=== PATIENT | female | born 1945 | race Caucasian/White ===

== ENCOUNTER 2016-02-19 05:22 | Inpatient (IN) | payer OTHER ==
[2016-02-19] MEDS ORDERED: LIDOCAINE 1% 5 ML SDV ONE ×2 (05:32→05:45)
[2016-02-19] MEDS ORDERED: CEFAZOLIN 2 GM/DEXTROSE/100 ML BAG IV ONE (05:43)
[2016-02-19] MEDS ORDERED: BUPIVACAINE/EPI 0.25% 30 ML SDV ONE (06:15)
[2016-02-19] MEDS ORDERED: BACITRACIN 50,000 UNITS/10 ML SYR IRR ONE ×2 (06:15→11:54)
[2016-02-19] MEDS ORDERED: THROMBIN (RECOMBINANT) 20,000 UNIT VIAL TP ONE (06:15)
[2016-02-19] MEDS ORDERED: ceFAZolin 2 GM/DEXTROSE 100 ML IV ONE (07:00)
[2016-02-19] MEDS ORDERED: CHLORHEXIDINE GLUC HIBICLENS 118 ML BTL TP ONE (07:00)
[2016-02-19] MEDS ORDERED: morphINE SR 15 MG TAB PO ONE (07:00)
[2016-02-19] MEDS ORDERED: MIDAZOLAM 2 MG/2 ML VIAL ONE (07:08)
[2016-02-19] MEDS ORDERED: REMIFENTANIL HCL 1 MG VIAL ONE ×2 (07:20→10:14)
[2016-02-19] MEDS ORDERED: PROPOFOL/EMULSION 500 MG/50 ML BOTTLE IV ONE ×2 (07:21→10:13)
[2016-02-19] MEDS ORDERED: fentaNYL 100 MCG/2 ML INJ ONE ×3 (07:21→12:56)
[2016-02-19] MEDS ORDERED: PROPOFOL 200 MG/20 ML VIAL ONE (07:21)
[2016-02-19] MEDS ORDERED: ROCURONIUM 50 MG/5 ML VIAL ONE (07:23)
[2016-02-19] MEDS ORDERED: ONDANSETRON 4 MG/2 ML VIAL ONE ×2 (07:24→12:59)
[2016-02-19] MEDS ORDERED: LIDOCAINE 2% 5 ML SDV ONE (07:27)
[2016-02-19] MEDS ORDERED: ONDANSETRON 4 MG/2 ML VIAL IVP PRN ×2 (07:54)
[2016-02-19] MEDS ORDERED: ONDANSETRON DISINTEGRATING 4 MG TAB PO PRN (07:54)
[2016-02-19] MEDS ORDERED: diphenhydrAMINE 25 MG CAP PO PRN (07:54)
[2016-02-19] MEDS ORDERED: BISACODYL 10 MG SUPP PR PRN (07:54)
[2016-02-19] MEDS ORDERED: TEMAZEPAM 15 MG CAP PO PRN (07:54)
[2016-02-19] MEDS ORDERED: LACTULOSE 20 GM/30 ML UDCUP PO PRN (07:54)
[2016-02-19] MEDS ORDERED: POLYETHYLENE GLYCOL 3350 17 GM PKT PO PRN (07:54)
[2016-02-19] MEDS ORDERED: HYDROmorphONE/DILAUDID 1 MG/ML SYR IVP PRN (07:54)
[2016-02-19] MEDS ORDERED: HYDROmorphONE/DILAUDID 6 MG/30 ML PCA IV PRN (07:54)
[2016-02-19] MEDS ORDERED: MAGNESIUM HYDROXIDE 30 ML UDCUP PO PRN (07:54)
[2016-02-19] MEDS ORDERED: NALOXONE HCL 0.4 MG/ML INJ IVP PRN (07:54)
[2016-02-19] MEDS ORDERED: METHOCARBAMOL 750 MG TAB PO PRN (07:54)
[2016-02-19] MEDS ORDERED: DIAZEPAM 10 MG/2 ML SYR IVP PRN (07:54)
[2016-02-19] MEDS ORDERED: DEXAMETHASONE 4 MG/ML VIAL ONE (08:04)
[2016-02-19] MEDS ORDERED: epHEDrine SULFATE 10 MG/ML SYR ONE ×3 (08:10→09:25)
[2016-02-19] MEDS ORDERED: morphINE SR 15 MG TAB PO SCH (09:00)
[2016-02-19] MEDS ORDERED: FAMOTIDINE 20 MG/NACL 50 ML IV SCH (09:00)
[2016-02-19] MEDS ORDERED: HYDROmorphONE/DILAUDID 1 MG/ML SYR ONE ×2 (12:56→13:05)
[2016-02-19] MEDS ORDERED: METHOCARBAMOL 750 MG TAB ONE (12:58)
[2016-02-19] MEDS ORDERED: HYDROCODONE/APAP 5/325 TAB ONE (12:59)
--- NOTE | 2016-02-19 13:45 | SOAPPROG ---
SOAP Progress Note Assessment/Plan: Post Op Visit: S: Awake and alert. NAD. Pt with expected lower back pain O: AFVSS/PERRLA/EOMI no droop CN 2-12 grossly intact +lt touch 5/5 BUE/BLE = CDI JENNIFER in place A/P: 70 yo female that is s/p TLIF L4-S1 -orders in place -call with any questions or concerns -take medications as directed -brace as directed 02/19/16 13:40 Objective: Vital Signs Temp Pulse Resp BP Pulse Ox 36.4 C 59 L 12 96/53 L 99 02/19/16 13:25 02/19/16 13:25 02/19/16 13:25 02/19/16 13:25 02/19/16 13:25 02/18/16 02/19/16 02/20/16 05:59 05:59 05:59 Intake Total 2675 Output Total 1150 Balance 1525 ICD10 Worksheet Patient Problems: Problems Problem Status Diagnosed Arthrodesis status Acute Lumbar radicular pain Acute Lumbar stenosis Acute - ICD10 Problem Qualifiers (1) Lumbar stenosis (2) Lumbar radicular pain (3) Arthrodesis status
--- NOTE | 2016-02-19 14:17 | GOP ---
[f rep st] OPERATIVE REPORT DATE OF OPERATION: 02/19/2016 SURGEON: Margarita Malik MD [employer]: Bentley Sanches PA-C PREOPERATIVE DIAGNOSIS: 1. Lumbar spondylolisthesis L4-L5. 2. Lumbar degenerative scoliosis. 3. Severe lumbar disk degenerative disease L5-S1. 4. Bilateral facet arthropathy with instability at L4-5. 5. Severe left and moderately severe right foraminal stenosis at L5-S1. 6. Bilateral lumbosacral radiculopathy. POSTOPERATIVE DIAGNOSIS: 1. Lumbar spondylolisthesis L4-L5. 2. Lumbar degenerative scoliosis. 3. Severe lumbar disk degenerative disease L5-S1. 4. Bilateral facet arthropathy with instability at L4-5. 5. Severe left and moderately severe right foraminal stenosis at L5-S1. 6. Bilateral lumbosacral radiculopathy. PROCEDURE PERFORMED: We did a complete bilateral laminectomy at L4-5 with bilateral decompressions a nd a posterolateral and intervertebral arthrodesis at that level (18367), L5-S1 posterolateral and in tervertebral arthrodesis with a left hemilaminectomy at L5-S1, decompression of the exiting left L5 n erve root and complete facetectomy on the left at L5-S1 (99697), placement of biomechanical intervert ebral device L4-5, L5-S1 without anchors (56940 x 2), spinal stereotaxy (14124), microscope (51878), same-incision bone graft harvest (59126), posterior segmental instrumentation, L4-L5-S1 (94679). FINDINGS: ESTIMATED BLOOD LOSS: 300 cc. DESCRIPTION OF PROCEDURE: The patient was taken to the operating room, placed in supine position. G eneral anesthesia was begun. She was flipped prone onto the Jonny table. Care was taken to pad al l points of contact. Her back was sterilely prepped and draped in the usual fashion. A localizing x -ray was taken. The O-arm was introduced to the field. The prior incision was marked. We extended this incision about 3 cm rostrally and about 1 cm caudally. The subcutaneous tissue was dissected us ing Bovie cautery down to the fascia and a subperiosteal dissection was made down the inferior lamina of L3. The lamina of L4, L5, and S1 was exposed. We shot a localizing x-ray. Removed the hypertro phic of arthritic facet joints bilaterally at L4-5 and L5-S1. All 4 of these facet joints were consi derable arthritic and there were actually sesamoid bones coming out of the L4-5 facet joint. These w ere removed. We exposed the transverse process of L4, L5, and the sacrum, and decorticated them. We had tested a Stealth reference frame of the L4 spinous process and an O-arm spin was made. Using fr [employer] Stealth stereotaxy, we placed pedicle screws bilaterally at L4, L5, and S1. All the screws s timulated at acceptable levels. A repeat O-arm spin was made all the screws were in excellent positi on. We then placed 55 mm rods down over the screws and distracted on the left than the right and got some reduction of the spondylolisthesis at L4-5. There was very little distraction possible at L5-S 1, but this level was not fused and needed to be addressed. We final tightened the cap screws accord ing to company specification, removed all the soft tissue from the spinous process of L4, L5, and the sacrum. We harvested the L5 spinous process for autologous grafting purposes. We then harvested th e inferior L4 spinous process for autologous grafting purposes. The operating microscope was introdu dayana, and at this point we drilled bilateral laminectomies of L4, preserving the IAP, SAP of L4-5 on t he right, and doing likewise on the right at L5-S1, but we removed the complete lamina of L4 inferior ly. The rostral arch was preserved. We harvested this for autologous grafting purposes. We thinned out the left homar lamina of L5 for a complete removal of that lamina, as well as the IAP of L5 on th e left and the IAP of L4 on the left. We harvested this for autologous grafting purposes. Under the scope, we then decompressed the central thecal sac, beginning at L5-S1 and working our way into the neural foramina on the left side at L5-S1 for decompression of the left L5 nerve root. We then follo wed the nerve root proximally along the medial pedicle border up to the L4-5 level, where we performe d a left decompression there. This is the site of the previous laminotomy, and there was some scar t issue very adherent to the dura, but we followed the L5 root into the thecal sac and then went latera lly above the L4 pedicle out into the neural foramina, decompressing the neural foramina itself, and removing the complete facet joint complex on the left at L4-5. The exiting L4 nerve root was identif ied. We then went centrally at L4-5 where there was no scar tissue, and decompressed the thecal sac on the right side of the thecal sac at L4-5, decompressing the traversing right L5 nerve root. A kasia e, right-sided decompression was obtained. The left side was decompressed, but we left the scar stuc k to the dura at that level. We mobilized the left L5 nerve root, incised the L4-5 disk, removed the disk and the cartilaginous endplates completely. We then roughened the subchondral bone to create a rthrodesis at that level, and chose a 7 x 28 mm device for L4-5. We then went down to the L5-S1 leve l where we swept the S1 nerve root medially, incised the L5-S1 disk, removed the disk and the cartila ginous endplates. This disc space was considerably collapsed and there was virtually no room in the disk space. We used a high-speed drill to denude the bone on either side of the disk space to create arthrodesis of the intervertebral space. We then used a 7 mm sizer and impacted this into the L5-S1 disk space and got a nice fit. It was removed. We chose a 7 mm [place] PEEK device. We inserted it at L4-5 and got it to disappear within the disk space itself, and we were happy with the position, but we wanted to get a little deeper. The posterior wall of the PEEK [place] cage did fracture as we were trying to force the device somewhat more anteriorly, but we were happy with the biomechanical impact of the device and where it sat within the space. We simply discarded the small shard of PEEK and it did not have any mechanical impact on our implant. We did not make an attempt to remove the implant. It was well positioned and accomplishing our surgical goals. We had placed a small amount of BMP and bone autograft into the L5-S1 space. We chose an expandable 7 x 28 mm Elevate cage at L4- 5, where we swept the nerve root medially, inserted the device, bone autograft, and BMP into the L4-5 disk space. We expanded the device under fluoroscopic guidance and got good elevation at L4-L5. Th e device was in perfect position. We then decorticated all the remaining bone, placed bone autograft and BMP posterolaterally bilaterally, placed a subfascial drain, and then closed the incision in mul tiple layers using Vicryl sutures. A running PDS was placed in the skin itself. The patient was rev ersed from anesthesia, extubated, and transferred to the recovery room in stable condition. There we re no complications. COMPLICATIONS: None. INSTRUMENTATION: [employer] Solera pedicle screws with a 4.75 mm rose mary and a 7 x 28 Elevate cage at L4- 5 and a 7 x 25 [place] cage at L5-S1. INDICATIONS FOR THE PROCEDURE: The patient is a 70-year-old who had a prior resection of a synovial cyst with good success who later developed bilateral lumbosacral radiculopathy, worsening pain, and M RI demonstrated severe recurrent stenosis at L4-5 and progression of spondylolisthesis at that level. There is also severe disk degenerative changes at L5-S1 and a crushed the left L5 nerve root in the neural foramen due to collapse of the disk space. She had terrible pain radiating into both legs an d this had failed to respond to conservative measures, and she desired to have surgery. The risk of surgery failing to alleviate any of her pain and in fact the risk of making it worse, was discussed. There is a risk of spinal fluid leak, nerve injury, screw and hardware malposition, malfunction, js or vascular injury, pseudoarthrosis, adjacent segment disease, and the possible need for future spine surgery. She understood these risks and she wanted to proceed. /[id number]/MODL
[2016-02-19] MEDS: [UNRECOGNIZED DRUG - OTHER] TP SCH (15:00)
[2016-02-19] MEDS: SENNOSIDES/DOCUSATE SODIUM TAB PO SCH ×2 (15:00→20:29)
[2016-02-19] MEDS: NS W/ 20 KCl/L 1,000 ML IV SCH (15:27)
[2016-02-19] MEDS: HYDROCODONE/APAP 5/325 TAB PO PRN (15:27)
--- NOTE | 2016-02-19 18:44 | DX ---
Intraoperative fluoroscopy History: Lumbar fusion. Comparison: MR lumbar spine December 27, 2015. Findings: Two intraoperative spot films are provided, showing transpedicular screw and rose mary fusion fro m L4 through S1. Intervertebral hardware is present at L4-L5. Two 3D spins were performed. Fluoro time: 33.6 seconds. Dose: 30.54 mGy. Impression: Intraoperative fluoroscopy as above.
[2016-02-19] MEDS: FAMOTIDINE 20 MG TAB PO SCH (20:28)
[2016-02-19] MEDS: morphINE SR 15 MG TAB PO SCH (20:28)
[2016-02-19] MEDS: PROGESTERONE 200 MG PO SCH (20:28)
[2016-02-19] MEDS: DIAZEPAM 5 MG TAB PO PRN (20:29)
[2016-02-20] MEDS: HYDROCODONE/APAP 5/325 TAB PO PRN ×4 (03:52→20:06)
[2016-02-20] MEDS: NS W/ 20 KCl/L 1,000 ML IV SCH (05:47)
[2016-02-20 05:53] LABS: HEMATOCRIT 29.5 % (38.0-47.0); HEMOGLOBIN 9.6 g/dL (12.6-16.3)
[2016-02-20] MEDS ORDERED: ESTRADIOL VIVELLE 0.05 MG PATCH TD SCH (08:00)
[2016-02-20] MEDS: SENNOSIDES/DOCUSATE SODIUM TAB PO SCH ×2 (08:05→20:06)
[2016-02-20] MEDS: FAMOTIDINE 20 MG TAB PO SCH ×2 (08:05→20:06)
[2016-02-20] MEDS: morphINE SR 15 MG TAB PO SCH ×2 (08:06→20:06)
[2016-02-20] MEDS: [UNRECOGNIZED DRUG - OTHER] TP SCH (08:08)
--- NOTE | 2016-02-20 08:30 | NEUSURGPN ---
Assessment/Plan: A/P: 70 yo female that is s/p TLIF L4-S1 -Remove JENNIFER drain -PT/OT -Pain management -TEDs, SCDs, lovenox day 3 -post op xrays pending -brace when OOB -D/w Dr Malik -Call NS with any issues Subjective: Pt resting in bed, states back pain controlled but present. Leg pain improved compared to pre op. Objective: AAOx3 NAD VSS MAEx4 Motor 5/5 BLE +LT JPx1 Incision dressed Urinary Catheter in Place: No Catheter Insertion Date: 02/19/16 - Physician Discussed Patient with : [facility] Physical Exam - Vitals, I&O, Labs I and O 02/19/16 02/20/16 02/21/16 05:59 05:59 05:59 Intake Total 4725 Output Total 2535 Balance 2190 Intake: Oral (ml) 975 IV Intake (ml) 2800 IV Infused (ml) 950 ceFAZolin 1 GM/DEXTROSE 50 50 ml @ 200 mls/hr IV Q8HRS MICHAEL Rx#:[id number] NS W/ 20 KCl/L 1,000 ml @ 900 75 mls/hr IV CONT MICHAEL Rx #:[id number] Output: Urine (ml) 1925 Catheter 1925 Estimated Blood Loss (ml) 200 Wound Drainage (ml) 410 Posterior Back Jonny 410 Shah Vital Signs Temp Pulse Resp BP Pulse Ox 37.1 C 66 16 82/52 L 96 02/20/16 07:49 02/20/16 07:49 02/20/16 07:49 02/20/16 07:49 02/20/16 07:49 Laboratory Results 02/20/16 05:15 ICD10 Worksheet Patient Problems: Problems Problem Status Diagnosed Arthrodesis status Acute Lumbar radicular pain Acute Lumbar stenosis Acute
[2016-02-20] MEDS: DIAZEPAM 5 MG TAB PO PRN (20:06)
[2016-02-20] MEDS: PROGESTERONE 200 MG PO SCH (20:08)
[2016-02-21] MEDS: HYDROCODONE/APAP 5/325 TAB PO PRN ×3 (02:32→22:24)
[2016-02-21] MEDS ORDERED: NS 500 ML IV ONE (08:00)
--- NOTE | 2016-02-21 08:05 | NEUSURGPN ---
Assessment/Plan: A/P: 70 yo female that is s/p TLIF L4-S1 POD#2 -PT/OT -Pain management -TEDs, SCDs, lovenox day 3 -post op xrays pending - to be done today -low BP - give 500NS bolus now and recheck -brace when OOB -Possible DC home today pending clinical course -D/w Dr Malik -Call NS with any issues Subjective: Pt resting in bed, states she feels less dizzy today Objective: AAOx3 NAD VSS MAEx4 Motor 5/5 BLE Incision cdi, steri strips intact +LT Urinary Catheter in Place: No Catheter Insertion Date: 02/19/16 - Physician Discussed Patient with : [facility] Physical Exam - Vitals, I&O, Labs I and O 02/20/16 02/21/16 02/22/16 05:59 05:59 05:59 Intake Total 4725 1100 Output Total 2535 165 Balance 2190 935 Intake: Oral (ml) 975 200 IV Intake (ml) 2800 IV Infused (ml) 950 900 ceFAZolin 1 GM/DEXTROSE 50 50 ml @ 200 mls/hr IV Q8HRS MICHAEL Rx#:[id number] NS W/ 20 KCl/L 1,000 ml @ 900 900 75 mls/hr IV CONT MICHAEL Rx #:[id number] Output: Urine (ml) 1925 Catheter 1925 Estimated Blood Loss (ml) 200 Wound Drainage (ml) 410 165 Posterior Back Jonny 410 165 Shah Other: Number of Voids Catheter 2 Toilet 1 Vital Signs Temp Pulse Resp BP Pulse Ox 37.1 C 69 16 86/50 L 95 02/21/16 04:00 02/21/16 04:00 02/21/16 04:00 02/21/16 04:00 02/21/16 04:00 Laboratory Results 02/20/16 05:15 ICD10 Worksheet Patient Problems: Problems Problem Status Diagnosed Arthrodesis status Acute Lumbar radicular pain Acute Lumbar stenosis Acute
[2016-02-21] MEDS: SENNOSIDES/DOCUSATE SODIUM TAB PO SCH ×2 (08:14→21:27)
[2016-02-21] MEDS: FAMOTIDINE 20 MG TAB PO SCH ×2 (08:14→21:27)
[2016-02-21] MEDS: morphINE SR 15 MG TAB PO SCH (08:14)
[2016-02-21] MEDS: [UNRECOGNIZED DRUG - OTHER] TP SCH (08:16)
--- NOTE | 2016-02-21 10:14 | DX ---
Lumbar Spine, Two Views February 21, 2016 Indication: Postop evaluation. Technique: Upright AP and lateral views. Comparison: MRI lumbar spine December 27, 2015. Findings: A new bilateral posterior fusion construct extending from L4 to S1 consists of dual vocational rehabilitation technician ior rods and bilateral pedicle screws at L4, L5, and S1, allograft and markers in the L5-S1 interbody space and radiopaque device and markers in the L4-L5 interbody space. L4 is anterolisthesed 4 mm on L5. No perihardware fracture or lucency. Lumbar spine has mild levocurvature apex at L3 with a Maher a ngle of 14 degrees between the T12 and L4 pedicles. Impression: New well-seated posterior fusion construct extending from L4-S1.
[2016-02-21] MEDS: ACETAMINOPHEN 325 MG TAB PO PRN (17:43)
[2016-02-21] MEDS: PROGESTERONE 200 MG PO SCH (21:28)
[2016-02-22 00:01] VITALS: RESP 16
[2016-02-22] MEDS: NS W/ 20 KCl/L 1,000 ML IV SCH (04:27)
--- NOTE | 2016-02-22 08:23 | NEUSURGPN ---
Date of Surgery: 02/19/16 Post Op Day: 3 Assessment/Plan: A/P: 70 yo female that is s/p TLIF L4-S1 POD#3 -PT/OT -Pain management -TEDs, SCDs, lovenox day 3 -post op xrays stable -continue to follow BP, stop IV fluids -brace when OOB -Likely DC home today pending BP Subjective: Sitting in bedside chair. No LE pain, numbness, tingling; has leg achiness. Objective: Awake. Alert. PERRL. EOMI Following commands Muscle strength full at 5/5 Sensation intact Catheter Insertion Date: 02/19/16 - Physician Discussed Patient with .: [facility] Physical Exam - Vitals, I&O, Labs I and O 02/21/16 02/22/16 02/23/16 05:59 05:59 05:59 Intake Total 1100 1600 200 Output Total 165 Balance 935 1600 200 Intake: Oral (ml) 200 1100 IV Infused (ml) 900 500 200 NS W/ 20 KCl/L 1,000 ml @ 900 200 75 mls/hr IV CONT MICHAEL Rx #:[id number] Ns 500 ml @ As Directed 500 IV ONCE ONE Rx#: [id number] Output: Wound Drainage (ml) 165 Posterior Back Jonny 165 Shah Other: Number of Voids Catheter 2 Toilet 1 1 Vital Signs Temp Pulse Resp BP Pulse Ox 37.1 C 63 16 95/52 L 96 02/22/16 00:00 02/22/16 00:00 02/22/16 00:00 02/22/16 00:00 02/22/16 00:00 Laboratory Results 02/20/16 05:15 ICD10 Worksheet Patient Problems: Problems Problem Status Diagnosed Arthrodesis status Acute Lumbar radicular pain Acute Lumbar stenosis Acute
[2016-02-22 08:27] VITALS: BP 99/60; PULSE 73; TEMP 99.1; O2SAT 93
[2016-02-22] MEDS ORDERED: ENOXAPARIN 40 MG/0.4 ML SYR SC SCH (09:00)
[2016-02-22] MEDS: [UNRECOGNIZED DRUG - OTHER] TP SCH (09:25)
[2016-02-22] MEDS: FAMOTIDINE 20 MG TAB PO SCH (09:34)
[2016-02-22] MEDS: SENNOSIDES/DOCUSATE SODIUM TAB PO SCH (09:34)
[2016-02-22] MEDS: ACETAMINOPHEN 325 MG TAB PO PRN (09:35)
--- NOTE | 2016-02-22 12:21 | PDIAF ---
- Diagnosis Diagnosis: Lumbar spondylolisthesis, radiculopathy Code Status: Full Code - Medication Management Discharge Medications: Medications to Continue on Transfer Estradiol [Vivelle-Dot 0.05MG (*)] 0.05 mg TD MoTh@0800 01/22/16 [Last Taken 11/24] Progesterone Compounded 200mg 200 mg PO HS 01/22/16 [Last Taken 02/18/16 22:00] Testosterone Compounded Cream 1 laurie TP DAILY 01/22/16 [Last Taken 02/14/16] Hydrocodone/APAP 5/325 [Hadley 5/325 (*)] 1 - 2 tab PO Q4HRS PRN #60 tab [Last Taken Unknown] Methocarbamol [Robaxin 750 mg (*)] 750 mg PO QID PRN #60 tab 02/22/16 [Last Taken Unknown] Discharge Medications: Refer to the Discharge Home Medication list for PRN reason. - Orders Services needed: Home Care, Physical Therapy, Occupational Therapy Home Care Face to Face: I certify that this patient was under my care and that I had the required [id number] encounter meeting the encounter requirements on the discharge day. My findings support the fact that the patient is homebound as defined in CMS Chapter 7 Medicare Benefits Manual 30.1.1, The condition of the patient is such that there exists a normal inability to leave home and consequently, leaving home would require a considerable and taxing effort. Diet Recommendation: no restrictions on diet Wound Care Instructions: Ok to shower and get incision wet. Be gentle. No scrubbing. No soaking in the water. Activity/Weight Bearing Restrictions: Wear brace when out of bed. Refrain from lifting more than 10 pounds or bending/twisting. - Follow Up Care Current Providers and Referrals: Sally Riley MD [Primary Care Provider] - Damian Malik MD [Medical Doctor] - follow up in 2 weeks ()
== END 2016-02-22 14:03 | disposition home health service (06) | DRG 458 ==
LOC: F2N 05:22 → F3N 07:41
PROVIDERS: ADMIT Neurological Surgery; ATTEND Neurological Surgery
PROC: 0QB00ZZ Excision of Lumbar Vertebra, Open Approach (ICD-10-PCS; principal; 2016-02-19 07:30)
PROC: 3E0U0GB Introduction of Recombinant Bone Morphogenetic Protein into Joints, Open Approach (ICD-10-PCS; principal; 2016-02-19 07:30)
PROC: 01NB0ZZ Release Lumbar Nerve, Open Approach (ICD-10-PCS; principal; 2016-02-19 07:30)
PROC: 0SG10AJ Fusion of 2 or more Lumbar Vertebral Joints with Interbody Fusion Device, Posterior Approach, Anterior Column, Open Approach (ICD-10-PCS; principal; 2016-02-19 07:30)
DX: M41.26 Other idiopathic scoliosis, lumbar region (principal); M43.16 Spondylolisthesis, lumbar region; M51.36 Other intervertebral disc degeneration, lumbar region; M47.26 Other spondylosis with radiculopathy, lumbar region; M99.73 Connective tissue and disc stenosis of intervertebral foramina of lumbar region
CPT/HCPCS: 97116-GP; 97162-GP; 97165-GO; 97530-GP; 97535-GO; C1713; G8978-GP-CL; G8979-GP-CI; G8987-GO-CJ; G8988-GO-CI; G8989-GO-CI; J0690; J1100; J1170; J1650; J2250; J2405; J2704; J3010

== ENCOUNTER → 2018-03-04 | Outpatient (CLI) | payer OTHER | LOC: CIMAGING 07:57 | PROVIDERS: ATTEND Physician Assistant | DX: G89.18 Other acute postprocedural pain (principal); Z96.641 Presence of right artificial hip joint; Z98.890 Other specified postprocedural states | CPT/HCPCS: 73700-PO ==

== ENCOUNTER → 2018-03-18 | Day surgery (SDC) | payer OTHER ==
[~2018-03-18] MED LIST: LIDOCAINE 1% 300 MG/30 ML SDV ONE
== END | disposition home or self-care (01) ==
LOC: FIMAGING 10:55
PROVIDERS: ATTEND Physician Assistant
PROC: 0M9 Bursae and Ligaments, Drainage (ICD-10-PCS; principal; 2018-03-18)
DX: M25.451 Effusion, right hip (principal)